=== PATIENT | female | born 1960 | race Caucasian/White ===

== ENCOUNTER 2024-02-01 14:51 | Inpatient (IN) | payer MEDICAID, SELFPAY ==
[2024-02-01] MEDS ORDERED: ONDANSETRON 4 MG/2 ML VIAL ONE (15:08)
[2024-02-01] MEDS ORDERED: MORPHINE 4 MG/ML SYR ONE ×2 (15:08→18:05)
--- NOTE | 2024-02-01 16:57 | RAD REPORT ---
EXAM DESCRIPTION: RAD - Hip Left 2 View - 02/01/2024 4:38 pm CLINICAL HISTORY: PAIN COMPARISON: None available TECHNIQUE: Left hip, AP and frogleg views of the left hip. FINDINGS: Displaced intertrochanteric fracture. femoroacetabular alignment is preserved. No acute or destructive bony process seen. IMPRESSION: Displaced intertrochanteric fracture.
--- NOTE | 2024-02-01 17:21 | ER ---
Nurse's Notes [facility] Name: Britta Rose Age: 64 yrs Sex: Female : 1960 Arrival Date: 02/01/2024 Time: 14:51 Bed 14 Private MD: Diagnosis: Intertrochanteric left hip fracture Presentation: 01/31 14:56 Chief complaint: Patient states: she slipped and fell in her kitchen. reports left hip kc6 pain. Coronavirus screen: At this time, the client does not indicate any symptoms associated with coronavirus-19. Ebola Screen: No symptoms or risks identified at this time. Initial Sepsis Screen: Does the patient meet any 2 criteria? No. Patient's initial sepsis screen is negative. Does the patient have a suspected source of infection? No. Patient's initial sepsis screen is negative. Risk Assessment: Do you want to hurt yourself or someone else? Patient reports no desire to harm self or others. Onset of symptoms was February 01, 2024. 14:56 Method Of Arrival: EMS: [facility] 14:56 Acuity: LAURY 3 kc6 14:59 Care prior to arrival: Medication(s) given: FENTANYL 100MCG IV initiated. 22 GA, in the kc6 right antecubital area. Triage Assessment: 14:57 General: Appears in no apparent distress. uncomfortable, well groomed, well developed, kc6 Behavior is calm, cooperative, appropriate for age. Pain: Complains of pain in left hip. EENT: No signs and/or symptoms were reported regarding the EENT system. Neuro: Level of Consciousness is awake, alert, obeys commands, Oriented to person, place, time, situation, Appropriate for age Reports dizziness. Cardiovascular: Capillary refill < 3 seconds. Respiratory: Airway is patent Trachea midline Respiratory effort is even, unlabored, Respiratory pattern is regular, symmetrical. GI: No signs and/or symptoms were reported involving the gastrointestinal system. : No signs and/or symptoms were reported regarding the genitourinary system. Derm: No signs and/or symptoms reported regarding the dermatologic system. Skin is intact, is healthy with good turgor, Skin is pink, warm \T\ dry. Musculoskeletal: Capillary refill < 3 seconds, Range of motion: limited in left hip. Historical: - Allergies: 14:57 No Known Allergies; kc6 - Home Meds: 14:57 None [Active]; kc6 - PMHx: 14:57 Hypertensive disorder; 6 - PSHx: 14:57 None; kc6 - Immunization history:: Adult Immunizations not up to date. - Infectious Disease History:: Denies. - Social history:: Smoking status: unknown. - Family history:: not pertinent. Screenin:58 [facility] ED Fall Risk Assessment (Adult) History of falling in the last 3 months, city hospital including since admission Yes- single mechanical fall (1 pt) Confusion or Disorientation No (0 pts) Intoxicated or Sedated No (0 pts) Impaired Gait No (0 pts) Mobility Assist Device Used No (0 pt) Altered Elimination No (0 pt) Score/Fall Risk Level 0 - 2 = Low Risk. Abuse screen: Denies threats or abuse. Denies injuries from another. Nutritional screening: No deficits noted. Tuberculosis screening: No symptoms or risk factors identified. Assessment: 14:59 Reassessment: PLEASE SEE TRIAGE. city [facility] 15:59 Reassessment: Patient appears in no apparent distress at this time. No changes from city hospital previously documented assessment. Patient and/or family updated on plan of care and expected duration. Pain level reassessed. Patient is alert, oriented x 3, equal unlabored respirations, skin warm/dry/pink. 16:59 Reassessment: Patient appears in no apparent distress at this time. No changes from kc6 previously documented assessment. Patient and/or family updated on plan of care and expected duration. Pain level reassessed. Patient is alert, oriented x 3, equal unlabored respirations, skin warm/dry/pink. 17:59 Reassessment: Patient appears in no apparent distress at this time. No changes from kc6 previously documented assessment. Patient and/or family updated on plan of care and expected duration. Pain level reassessed. Patient is alert, oriented x 3, equal unlabored respirations, skin warm/dry/pink. 18:30 Reassessment: Patient appears in no apparent distress at this time. No changes from kc6 previously documented assessment. Patient and/or family updated on plan of care and expected duration. Pain level reassessed. Patient is alert, oriented x 3, equal unlabored respirations, skin warm/dry/pink. 19:08 General: Appears in no apparent distress. comfortable, Behavior is calm, cooperative. lg3 Pain: Complains of pain in left hip Pain does not radiate. Pain currently is 8 out of 10 on a pain scale. Neuro: No deficits noted. [place] Agitation-Sedation Scale (RASS): 0 - Alert and Calm Level of Consciousness is awake, alert, obeys commands, Oriented to person, place, time, situation. Cardiovascular: No deficits noted. Denies chest pain, shortness of breath, Capillary refill < 3 seconds Clubbing of nail beds is absent JVD is absent Patient's skin is warm and dry. Respiratory: No deficits noted. Airway is patent Respiratory effort is even, unlabored, Respiratory pattern is regular, symmetrical. GI: No deficits noted. No signs and/or symptoms were reported involving the gastrointestinal system. : Castillo in place to gravity drainage Urine is clear. EENT: No deficits noted. No signs and/or symptoms were reported regarding the EENT system. Derm: No deficits noted. Skin is intact, is healthy with good turgor, Skin is dry, Skin is normal, Skin temperature is warm. Musculoskeletal: Circulation, motion, and sensation intact. Range of motion: limited in left hip. 19:18 General: hospitalist at bedside. lg3 Vital Signs: 14:56 BP 195 / 88; Pulse 72; Resp 16 S; Temp 97.9(O); Pulse Ox 100% on R/A; kc6 15:17 BP 155 / 79; Pulse 69; Resp 16 S; Pulse Ox 99% on R/A; kc6 16:08 BP 156 / 67; Pulse 93; Resp 16 S; Pulse Ox 100% on R/A; kc6 17:09 BP 158 / 74; Resp 19 S; Pulse Ox 99% on R/A; kc6 18:22 BP 128 / 79; Pulse 97; Resp 18 S; Pulse Ox 98% on R/A; kc6 19:08 BP 153 / 82; Pulse 96; Resp 17 S; Pulse Ox 98% on R/A; lg3 ED Course: 14:52 Patient arrived in ED. hb 14:55 Raoul Hanna MD is Attending Physician. rt 14:56 Cheri Pan RN is Primary Nurse. kc6 14:57 Triage completed. kc6 14:57 Arm band placed on. kc6 14:58 Maintain EMS IV. Dressing intact. Good blood return noted. Site clean \T\ dry. Gauge \T\ dejah 6 site: 22G RAC. 14:59 Patient has correct armband on for positive identification. Placed in gown. Bed in low kc6 position. Call light in reach. Side rails up X2. Adult w/ patient. Client placed on continuous cardiac and pulse oximetry monitoring. NIBP monitoring applied. Warm blanket given. Pillow given. 16:39 Hip Left 2 View XRAY In Process Unspecified. EDMS 17:20 Nash Arzola MD is Hospitalizing Provider. rt 17:37 Basic Metabolic Panel Sent. jg11 17:37 CBC with Diff Sent. jg11 17:37 LFT's Sent. jg11 17:37 Magnesium Sent. jg11 17:37 PT-INR Sent. jg11 17:37 Troponin HS Sent. jg11 17:37 Initial lab(s) drawn, by me, sent to lab. Inserted saline lock: 22 gauge in right jg11 wrist, using aseptic technique. Blood collected. 18:13 EKG done, by ED staff, reviewed by Raoul Hanna MD. jg11 18:21 Castillo cath inserted, using sterile technique, 18 Fr., by me, balloon inflated, to kc6 gravity drainage, clamped. returned clear yellow urine. Patient tolerated well. 19:00 Report given to STEPHON Dietrich. kc6 19:08 Report received from STEPHON rodriguez. lg3 20:20 Provided Education on: admission. lg3 20:20 No provider procedures requiring assistance completed. Patient admitted, IV remains in lg3 place. Administered Medications: 15:16 Drug: morphine IVP or IV 4 mg IVP once over 4 mins Route: IVP; Infused Over: 4 mins; kc6 Site: right antecubital; 16:35 Follow up: Response: No adverse reaction; RASS: Alert and Calm (0) kc6 15:16 Drug: Ondansetron IVP 4 mg IVP once; over 2 minutes Route: IVP; Site: right antecubital;kc6 16:35 Follow up: Response: No adverse reaction [facility] 18:21 Drug: morphine IVP or IV 4 mg IVP once over 4 mins Route: IVP; Infused Over: 4 mins; kc6 Site: right wrist; 19:06 Follow up: Response: No adverse reaction; Pain is decreased; RASS: Alert and Calm (0) kc6 19:45 Drug: HYDROmorphone IVP 0.5 mg IVP once Route: IVP; Site: right wrist; lg3 20:45 Follow up: Response: No adverse reaction; Marked relief of symptoms; Pain is decreased lg3 Medication: 19:08 VIS not applicable for this client. lg3 Outcome: 17:20 Decision to Hospitalize by Provider. rt 20:20 Admitted to Med/surg accompanied by tech, via stretcher, room 230, lg3 20:20 Condition: stable 20:20 Instructed on the need for admit, Demonstrated understanding of instructions, 20:45 Patient left the ED. lg3 Signatures: Dispatcher [employer] EDMS Mae Woods RN RN hb Able, Lacie, RN RN lg3 Cheri Pan RN RN kc6 Raoul Hanna MD MD rt Jose C Soni jg11 Corrections: (The following items were deleted from the chart) 19:45 19:08 Pain: Complains of pain in left hip Pain does not radiate. Pain currently is 4 lg3 out of 10 on a pain scale. lg3
--- NOTE | 2024-02-01 17:21 | EDPHYS ---
Physician Documentation [facility] Name: Britta Rose Age: 64 yrs Sex: Female : 1960 Arrival Date: 02/01/2024 Time: 14:51 Bed 14 Private MD: ED Physician Raoul Hanna HPI: 01/31 17:49 This 64 yrs old Female presents to ER via EMS with complaints of Fall Injury, Hip Pain. rt 17:49 Patient presents to the ED with mechanical slip and fall onto her left hip. It is rt externally rotated, foreshortened. Pain is moderate in severity, nonradiating. Denies other injury, other acute complaints.. Historical: - Allergies: 14:57 No Known Allergies; kc6 - Home Meds: 14:57 None [Active]; kc6 - PMHx: 14:57 Hypertensive disorder; kc6 - PSHx: 14:57 None; kc6 - Immunization history:: Adult Immunizations not up to date. - Infectious Disease History:: Denies. - Social history:: Smoking status: unknown. - Family history:: not pertinent. ROS: 17:49 Constitutional: Negative for fever, chills, and weight loss, Cardiovascular: Negative rt for chest pain, palpitations, and edema, Respiratory: Negative for shortness of breath, cough, wheezing, and pleuritic chest pain, Abdomen/GI: Negative for abdominal pain, nausea, vomiting, diarrhea, and constipation, Neuro: Negative for headache, weakness, numbness, tingling, and seizure, Psych: Negative for depression, anxiety, suicide ideation, homicidal ideation, and hallucinations, 17:49 MS/extremity: Positive for injury or acute deformity, pain, Exam: 17:49 Constitutional: This is a well developed, well nourished patient who is awake, alert, rt and in no acute distress. Head/Face: Normocephalic, atraumatic. Chest/axilla: Normal chest wall appearance and motion. Nontender with no deformity. No lesions are appreciated. Cardiovascular: Regular rate and rhythm with a normal S1 and S2. No gallops, murmurs, or rubs. Normal PMI, no JVD. No pulse deficits. Respiratory: Lungs have equal breath sounds bilaterally, clear to auscultation and percussion. No rales, rhonchi or wheezes noted. No increased work of breathing, no retractions or nasal flaring. Abdomen/GI: Soft, non-tender, with normal bowel sounds. No distension or tympany. No guarding or rebound. No evidence of tenderness throughout. Skin: Warm, dry with normal turgor. Normal color with no rashes, no lesions, and no evidence of cellulitis. Neuro: Awake and alert, GCS 15, oriented to person, place, time, and situation. Cranial nerves II-XII grossly intact. Motor strength 5/5 in all extremities. Sensory grossly intact. Cerebellar exam normal. Normal gait. 17:49 Musculoskeletal/extremity: Externally rotated and foreshortened left leg, pulses, motor, sensation intact, tenderness overlying hip, no other focal areas of tenderness.. 18:12 ECG was reviewed by the Attending Physician. rt Vital Signs: 14:56 BP 195 / 88; Pulse 72; Resp 16 S; Temp 97.9(O); Pulse Ox 100% on R/A; kc6 15:17 BP 155 / 79; Pulse 69; Resp 16 S; Pulse Ox 99% on R/A; kc6 16:08 BP 156 / 67; Pulse 93; Resp 16 S; Pulse Ox 100% on R/A; kc6 17:09 BP 158 / 74; Resp 19 S; Pulse Ox 99% on R/A; kc6 18:22 BP 128 / 79; Pulse 97; Resp 18 S; Pulse Ox 98% on R/A; kc6 19:08 BP 153 / 82; Pulse 96; Resp 17 S; Pulse Ox 98% on R/A; lg3 MDM: 14:57 Patient medically screened. rt 17:49 Differential diagnosis: Hip fracture. Data reviewed: vital signs, nurses notes, rt radiologic studies. Consideration of Admission/Observation Patient was admitted/placed on observation. Management of patient was discussed with the following: Laundry Helper: Discussed with orthopedics on-call, recommends admission to hospital service. I considered the following discharge prescriptions or medication management in the emergency department Medications were administered in the Emergency Department. See MAR. Independent interpretation of the following test(s) in the Emergency Department X-Ray: My interpretation is Hip fracture seen on interpretation of x-ray images. Counseling: I had a detailed discussion with the patient and/or guardian regarding the historical points, exam findings, and any diagnostic results supporting the discharge/admit diagnosis, radiology results, the need for further work-up and treatment in the hospital. Response to treatment: the patient's symptoms have mildly improved after treatment. 01/31 17:18 Order name: Basic Metabolic Panel; Complete Time: 18:34 rt 01/31 17:18 Order name: CBC with Diff; Complete Time: 18:34 rt 01/31 17:18 Order name: LFT's; Complete Time: 18:34 rt 01/31 17:18 Order name: Magnesium; Complete Time: 18:34 rt 01/31 17:18 Order name: PT-INR; Complete Time: 17:57 rt 01/31 17:18 Order name: Troponin HS; Complete Time: 18:34 rt 01/31 17:41 Order name: CBC Smear Scan; Complete Time: 18:34 EDMS 01/31 19:08 Order name: CBC with Automated Diff EDMS 01/31 19:08 Order name: CBC with Automated Diff EDMS 01/31 19:08 Order name: Comprehensive Metabolic Panel EDMS 01/31 19:08 Order name: Comprehensive Metabolic Panel EDMS 01/31 19:08 Order name: Magnesium EDMS 01/31 19:08 Order name: Magnesium EDMS 01/31 19:08 Order name: Phosphorus EDMS 01/31 19:08 Order name: Phosphorus EDMS 01/31 19:08 Order name: Protime (+INR) EDMS 01/31 19:08 Order name: Protime (+INR) EDMS 01/31 19:08 Order name: PTT, Activated Partial Thromb EDMS 01/31 19:08 Order name: PTT, Activated Partial Thromb EDMS 01/31 15:07 Order name: Hip Left 2 View XRAY; Complete Time: 16:59 rt 01/31 17:18 Order name: EKG; Complete Time: 17:18 rt 01/31 19:08 Order name: CONS Physician Consult EDMS 01/31 17:18 Order name: Cardiac monitoring; Complete Time: 17:37 rt 01/31 17:18 Order name: EKG - Nurse/Tech; Complete Time: 18:13 rt 01/31 17:18 Order name: IV Saline Lock; Complete Time: 17:37 rt 01/31 17:18 Order name: Labs collected and sent; Complete Time: 17:37 rt 01/31 17:18 Order name: O2 Per Protocol; Complete Time: 17:37 rt 01/31 17:18 Order name: O2 Sat Monitoring; Complete Time: 17:37 rt EC:12 Rate is 113 beats/min. Rhythm is regular, Normal Sinus Rhythm with No ectopy. QRS [place] rt is Normal. NC interval is normal. QRS interval is normal. QT interval is normal. No Q waves. Clinical impression: NSR w/ Non-specific ST/T Changes. Administered Medications: 15:16 Drug: morphine IVP or IV 4 mg IVP once over 4 mins Route: IVP; Infused Over: 4 mins; kc6 Site: right antecubital; 16:35 Follow up: Response: No adverse reaction; RASS: Alert and Calm (0) 6 15:16 Drug: Ondansetron IVP 4 mg IVP once; over 2 minutes Route: IVP; Site: right antecubital;kc6 16:35 Follow up: Response: No adverse reaction 6 18:21 Drug: morphine IVP or IV 4 mg IVP once over 4 mins Route: IVP; Infused Over: 4 mins; kc6 Site: right wrist; 19:06 Follow up: Response: No adverse reaction; Pain is decreased; RASS: Alert and Calm (0) 6 19:45 Drug: HYDROmorphone IVP 0.5 mg IVP once Route: IVP; Site: right wrist; lg3 20:45 Follow up: Response: No adverse reaction; Marked relief of symptoms; Pain is decreased lg3 Disposition Summary: 02/01/24 17:20 Hospitalization Ordered Notes: Hospitalization Status: Inpatient Admission rt Provider: Nash Arzola rt Location: Telemetry/[facility] (Inpatient) rt Condition: Stable rt Problem: new rt Symptoms: are unchanged rt Bed/Room Type: Standard rt Room Assignment: 230(02/01/24 19:29) vc1 Diagnosis - Intertrochanteric left hip fracture rt Forms: - Medication Reconciliation Form rt - SBAR form rt - Leadership Thank You Letter rt Signatures: Dispatcher [employer] Monserrat Sanchez Lacie RN RN lg3 Zahraa Domínguez RN RN vc1 Cheri Pan RN RN kc6 Raoul Hanna MD MD rt Corrections: (The following items were deleted from the chart) 15:07 15:07 Hip Left 2 View+RAD.RAD.BRZ ordered. EDMS EDMS 18:31 17:20 rt eb 18:34 18:31 216 eb eb 19:29 18:34 eb vc1
[2024-02-01 17:38] LABS: Absolute Basophils 0.1 K/uL (0-0.5); Absolute Lymphocytes (CBC) 1.3 K/uL (0.7-4.9); Absolute Monocytes 0.8 K/uL (0.1-1.3); Absolute Neutrophil 21.5 K/uL (1.8-8.0); Basophils % 0.2 % (0-1.3); Hematocrit 37.1 % (36.0-45.0); Hemoglobin 12.6 g/dL (12.0-15.0); Lymphocytes % 5.4 % (15.3-44.8); MCV 94.1 fL (80-100); MPV 8.4 fL (7.6-11.3); Monocytes % 3.4 % (3.3-12.3); Platelets 423 thou/uL (152-406); RBC Red Blood Cell Count 3.94 M/uL (3.86-4.86); Red Cell Distribution Width 12.8 % (12.1-15.2)
[2024-02-01 17:42] LABS: PT Prothrombin Time 11.9 SECONDS (9.5-12.5); Protime INR 1.08
[2024-02-01 17:57] LABS: ALT/SGPT 51 U/L (13-56); AST/SGOT 20 U/L (15-37); Albumin 3.7 g/dL (3.4-5.0); Alkaline Phosphatase 93 U/L (45-117); Anion Gap 11.1 mEq/L (5.0-15.0); BUN Blood Urea Nitrogen 14 mg/dL (7-18); Bicarbonate 25 mEq/L (21-32); Bilirubin Total 0.4 mg/dL (0.2-1.0); Globulin 3.6 g/dL (2.3-3.5); Glomerular Filtration Rate 59 ml/min (=/>90); Glucose Level 211 mg/dL (74-106); Magnesium 1.6 mg/dL (1.6-2.4); Potassium 3.1 mEq/L (3.5-5.1); Protein, Total 7.3 g/dL (6.4-8.2); Sodium Level 135 mEq/L (136-145); Troponin High Sensitivity 5.2 pg/mL (<58.9)
[2024-02-01 18:04] LABS: Blood Morphology Comment NOT SEEN (NOT SEEN); Platelet Estimate INCR; White Blood Cell Scan OK (OK)
[2024-02-01 18:33] LABS: Bilirubin Direct < 0.2 mg/dL (0-0.2); Bilirubin Indirect, Calculated 0.2 mg/dL (0.2-0.8)
[2024-02-01] MEDS ORDERED: ACETAMINOPHEN 500 MG TAB PO PRN (19:01)
--- NOTE | 2024-02-01 19:06 | P.HP ---
Certification for Inpatient Patient admitted to: Inpatient With expected LOS: >2 Midnights Patient will require the following post-hospital care: Rehabilitation Practitioner: I am a practitioner with admitting privileges, knowledge of patient current condition, hospital course, and medical plan of care. Services: Services provided to patient in accordance with Admission requirements found in Title 42 Section 412.3 of the Code of Federal Regulations Patient History Date of Service: 02/01/24 Reason for admission: Left hip fracture History of Present Illness: Patient is a 64-year-old female came to the hospital after a fall. Patient was in her kitchen and she thinks her socks got caught on a screw on on the floor. She bent over to get her sock out of the screw when she fell backwards and landed on her left buttocks. Patient was unable to stand. EMS was called and patient was brought into the emergency room. Patient denies any medical probl ems. She has been to a physician in many years. She does not get her preventative screenings either. In the emergency room, patient had x-rays of her hip which revealed a left intertrochanteric fracture. Dr. Diehl was notified from the emergency room. Patient is to be n.p.o. for surgical intervention in the morning. Patient with no medical problems. No cardiac disease. No high blood pressure or diabetes. Patient denies any chest pain or shortness of breath on ambulation. She does not get short of breath on walking long distance. Patient is low risk for any cardiopulmonary complications. Benefits of surgery outweigh the risks. Will recommend proceeding with surgery and patient is agreeable. Allergies No Known Allergies Allergy (Unverified 02/01/24 21:29) Home Medications: NK [No Home Meds] 02/01/24 - Past Medical/Surgical History Past Medical History: Patient denies medical history Past Surgical History: Patient denies surgical history - Family History Father Family History: Reviewed- Non-Contributory - Social History Smoking Status: Former smoker Alcohol use: No CD- Drugs: No Review of Systems 10-point ROS is otherwise unremarkable Physical Examination - Vital Signs Temperature: 98 F Blood Pressure: 140/80 Pulse: 80 Respirations: 18 Pulse Ox (%): 95 - Physical Exam General: Alert, In no apparent distress, Oriented x3 HEENT: Atraumatic, PERRLA, Mucous membr. moist/pink, EOMI, Sclerae nonicteric Neck: Supple, 2+ carotid pulse no bruit, No LAD, Without JVD or thyroid abnormality Respiratory: Clear to auscultation bilaterally, Normal air movement Cardiovascular: Regular rate/rhythm, Normal S1 S2, No murmurs Gastrointestinal: Normal bowel sounds, Soft and benign, Non-distended, No tenderness Musculoskeletal: No clubbing, No swelling, Tenderness (left hip fracture) Integumentary: No rashes Neurological: Normal gait, Normal speech, Normal strength at 5/5 x4 extr, Normal tone, Sensation intact, Cranial nerves 3-12 intact, Normal affect Lymphatics: No axilla or inguinal lymphadenopathy - Studies Laboratory Data (last 24 hrs) 02/01/24 02/01/24 02/01/24 17:28 17:28 17:28 WBC 23.60 H Hgb 12.6 Hct 37.1 Plt Count 423 H PT 11.9 INR 1.08 Sodium 135 L Potassium 3.1 L BUN 14 Creatinine 1.07 H Glucose 211 H Magnesium 1.6 Total Bilirubin 0.4 AST 20 ALT 51 Alkaline Phosphatase 93 Assessment & Plan - Problems (Diagnosis) (1) Fracture of left hip Current Visit: Yes Status: Acute (2) Leukocytosis Current Visit: Yes Status: Acute - Plan Plan: 1. Orthopedic consultation 2. N.p.o. after midnight 3. Monitor white blood cell count 4. Prophylactic antibiotics on-call to the OR 5. DVT prophylaxis 6. Physical therapy eval after surgery with possible inpatient rehabilitation to proceed after surgery depending on weightbearing status 7. Patient will need referral for PCP follow-up 8. GI DVT prophylaxis Discharge Plan: Other (Inpatient rehab) Plan to discharge in: Greater than 2 days - Advance Directives Does patient have a Living Will: No Does patient have a Durable POA for Healthcare: No - Code Status/Comfort Care Code Status Assessed: Yes Code Status: Full Code Critical Care: No Time Spent Managing PTS Care (In Minutes): 45
[2024-02-01] MEDS ORDERED: HYDROMORPHONE HCL 0.5 MG/0.5 ML INJ ONE (19:43)
[2024-02-01] MEDS: NA CHLORIDE 0.9% 1,000 ML IV SCH (21:29)
[2024-02-01] MEDS: HYDROMORPHONE HCL 0.5 MG/0.5 ML INJ IV PRN (21:30)
[2024-02-01] MEDS: CEFAZOLIN 1 GM in NA CHLORIDE 0.9% 50 ML IVPB ONE (21:30)
[2024-02-01] MEDS: ENOXAPARIN 40 MG/0.4 ML SQ SCH (22:00)
[2024-02-01 23:15] VITALS: BMI 20.1
[2024-02-02 07:39] LABS: Absolute Lymphocytes (CBC) 1.9 K/uL (0.7-4.9); Absolute Monocytes 0.8 K/uL (0.1-1.3); Absolute Neutrophil 11.6 K/uL (1.8-8.0); Basophils % 0.1 % (0-1.3); Hematocrit 33.3 % (36.0-45.0); Hemoglobin 11.4 g/dL (12.0-15.0); Lymphocytes % 13.5 % (15.3-44.8); MCH 32.2 pg (27.0-35.0); MCHC 34.2 g/dL (32.0-36.0); MCV 94.1 fL (80-100); MPV 8.5 fL (7.6-11.3); Monocytes % 5.8 % (3.3-12.3); Neutrophils % 80.6 % (41.7-73.7); Nucleated Red Blood Cells % 0.1 % (0-0); Platelets 401 thou/uL (152-406); RBC Red Blood Cell Count 3.54 M/uL (3.86-4.86); Red Cell Distribution Width 12.8 % (12.1-15.2)
[2024-02-02 07:56] LABS: Albumin 3.3 g/dL (3.4-5.0); Anion Gap 9.4 mEq/L (5.0-15.0); Bilirubin Total 0.6 mg/dL (0.2-1.0); Globulin 3.4 g/dL (2.3-3.5); Magnesium 2.1 mg/dL (1.6-2.4); Phosphorus 2.8 mg/dL (2.5-4.9); Potassium 3.4 mEq/L (3.5-5.1); Protein, Total 6.7 g/dL (6.4-8.2)
[2024-02-02 08:00] LABS: PT Prothrombin Time 12.6 SECONDS (9.5-12.5); PTT, Activated Partial Thromb 27.7 SECONDS (24.3-36.9); Protime INR 1.15
--- NOTE | 2024-02-02 08:20 | RAD REPORT ---
EXAM DESCRIPTION: RAD - Chest Single View - 02/02/2024 8:15 am CLINICAL HISTORY: preop Chest pain. COMPARISON: No comparisons FINDINGS: Portable technique limits examination quality. The lungs are grossly clear. The heart is normal in size. No displaced fractures. IMPRESSION: No acute intrathoracic process suspected.
[2024-02-02] MEDS: KCL 20 MEQ/100 mL IVPB 20 MEQ/100 ML BAG IV SCH (09:02)
--- NOTE | 2024-02-02 09:21 | P.PN ---
Subjective Date of Service: 02/02/24 Chief Complaint: Left hip fracture Subjective: No new changes (states she is awaiting surgery today) <Wendy Perezlen - Last Filed: 02/02/24 09:21> Date of Service: 02/02/24 <Yg Thompson - Last Filed: 02/02/24 12:47> Review of Systems 10-point ROS is otherwise unremarkable General: As per HPI Musculoskeletal: As per HPI <Wendy Perez Faisal - Last Filed: 02/02/24 09:21> Physical Examination - Vital Signs Temperature: 98.8 F Blood Pressure: 194/97 Pulse: 85 Respirations: 18 Pulse Ox (%): 98 - Physical Exam General: Alert, In no apparent distress, Oriented x3 HEENT: Atraumatic, Normocephalic Neck: 2+ carotid pulse no bruit Respiratory: Normal air movement Cardiovascular: Normal pulses (tachycardic) Capillary refill: <2 Seconds Gastrointestinal: Soft and benign Musculoskeletal: No clubbing, Other (mild left hip edema, tenderness to lateral left hip, peripheral pulses normal) Integumentary: No rashes Neurological: Normal speech Lymphatics: No axilla or inguinal lymphadenopathy Urinary: Castillo catheter External genitalia: Deferred Rectal: Deferred - Studies Laboratory Data (last 24 hrs) 02/01/24 02/01/24 02/01/24 17:28 17:28 17:28 WBC 23.60 H Hgb 12.6 Hct 37.1 Plt Count 423 H PT 11.9 INR 1.08 Sodium 135 L Potassium 3.1 L BUN 14 Creatinine 1.07 H Glucose 211 H Magnesium 1.6 Total Bilirubin 0.4 AST 20 ALT 51 Alkaline Phosphatase 93 <Wendy Perez Faisal - Last Filed: 02/02/24 09:21> - Studies Laboratory Data (last 24 hrs) 02/01/24 02/01/24 02/01/24 17:28 17:28 17:28 WBC 23.60 H Hgb 12.6 Hct 37.1 Plt Count 423 H PT 11.9 INR 1.08 Sodium 135 L Potassium 3.1 L BUN 14 Creatinine 1.07 H Glucose 211 H Magnesium 1.6 Total Bilirubin 0.4 AST 20 ALT 51 Alkaline Phosphatase 93 <Yg Thompson - Last Filed: 02/02/24 12:47> Assessment And Plan - Plan (1) Fracture of left hip Current Visit: Yes Status: Acute (2) Leukocytosis Current Visit: Yes Status: Acute - Plan Plan: 1. Orthopedic consultation - Dr. Diehl following 2. N.p.o. after midnight 3. Monitor white blood cell count 4. Prophylactic antibiotics on-call to the OR 5. DVT prophylaxis 6. Physical therapy eval after surgery with possible inpatient rehabilitation to proceed after surgery depending on weightbearing status 7. Patient will need referral for PCP follow-up 8. GI DVT prophylaxis Discharge Plan: Other (Inpatient rehab) Plan to discharge in: Greater than 2 days - Advance Directives Does patient have a Living Will: No Does patient have a Durable POA for Healthcare: No <Wendy Perez - Last Filed: 02/02/24 09:21> - Plan Pt seen and examined. I agree with the note by the FIRST ASSISTANT MANAGER. Dr. Diehl will take her to the OR tomorrow. Urinalysis is pending. Continue prn pain med. <Yg Thompson - Last Filed: 02/02/24 12:47>
[2024-02-02] MEDS: LABETALOL 20 MG/4ML SYRINGE IV ONE (10:25)
[2024-02-02] MEDS: ONDANSETRON 4 MG/2 ML VIAL IV PRN (10:34)
--- NOTE | 2024-02-02 12:19 | EKG ---
Test Date: 2024-02-02 Test Time: 07:58:50 [employer] Manager: CARMELITA MEASUREMENT RESULTS: Intervals: Rate: 79 IA: 138 QRSD: 80 QT: 380 QTc: 435 Wheeler: P: 59 IA: 138 QRS: 68 T: 68 INTERPRETIVE STATEMENTS: Normal sinus rhythm ST abnormality, possible digitalis effect Abnormal ECG Compared to ECG 02/01/2024 18:10:27 Sinus tachycardia no longer present Atrial abnormality no longer present ST (T wave) deviation still present Electronically Signed On 02-02-24 12:18:59 CDT by Asael Vazquez
--- NOTE | 2024-02-02 12:21 | EKG ---
Test Date: 2024-02-01 Test Time: 18:10:27 Professor Of Mechanical Engineering: RAFIA MEASUREMENT RESULTS: Intervals: Rate: 113 SD: 140 QRSD: 66 QT: 344 QTc: 471 [place]: P: 72 SD: 140 QRS: 77 T: 66 INTERPRETIVE STATEMENTS: Sinus tachycardia Right atrial enlargement Nonspecific ST abnormality Abnormal ECG No previous ECG available for comparison Electronically Signed On 02-02-24 12:19:50 CDT by Asael Vazquez
--- NOTE | 2024-02-02 13:41 | CON ---
Date of Consultation: 02/02/2024 History Of Present Illness: This is my first time seeing this patient to my knowledge. She says she does not normally see doctors. Unfortunately yesterday morning, she says she was removing something from dryer, had socks on and tripped. When she did, she landed directly on her left hip. She had i mmediate pain, was unable to get up and ambulate, and she was taken to the emergency room where x-ray s demonstrated a complex 4-part intertrochanteric fracture which was highly displaced. She was then admitted to the hospital under the care of the hospitalist and I am asked to see her. Physical Examination: She has no pain with palpation of any long bone or joint with the exception of her left hip, which is very painful to movement or manipulation. Laboratory Data And Imaging: Review of x-rays do demonstrate a complex comminuted 4-part intertrocha nteric fracture on the left. Review of laboratories reveal a relatively high white count as well as low potassium, high glucose and decreased sodium, which could be pseudohyponatremia from the glucose, which was over 200. None of these abnormalities have an easy explanation for the etiology as she is only 64 and says she has no medical problems. Assessment: A 64-year-old female, now with a complex comminuted intertrochanteric fracture on the le ft. Plan: At this time, we will see her labs due today, but I think it would be better for Internal Medi cine or Hospitalist to see her over the course of today to see if any further abnormalities can be di scerned prior to planned operative intervention tomorrow. Risks, benefits, and alternatives of this procedure have been discussed with her. She states she understands things as presented. We will mos t likely proceed tomorrow. All of her questions were otherwise answered. /KALEY Voice ID: [id number] Report ID: [id number]
[2024-02-02] MEDS ORDERED: ENOXAPARIN 40 MG/0.4 ML SQ SCH (17:00)
[2024-02-02 19:21] LABS: Specific Gravity 1.021 (1.005-1.030); Sqamous Epithelial None Seen /HPF (None Seen); Urine Bacteria None Seen /HPF (<20); Urine Bilirubin NEGATIVE (Negative); Urine Blood 2+ (Negative); Urine Clarity Clear (Clear); Urine Color Light-Yellow (Yellow); Urine Culture Reflex Order NOT NEEDED; Urine Glucose 1+ (Negative); Urine Ketones NEGATIVE (Negative); Urine Microscopic Reflex YN ORDER UMIC; Urine Mucus 1+ /HPF (None Seen); Urine Nitrite NEGATIVE (Negative); Urine Protein NEGATIVE (Negative); Urine Urobilinogen Normal (Normal); Urine WBC <5 /HPF (<5); Urine pH 6.5 (5.0-7.0)
[2024-02-03 04:44] LABS: Anion Gap 6.9 mEq/L (5.0-15.0); Potassium 3.9 mEq/L (3.5-5.1)
[2024-02-03] MEDS ORDERED: FENTANYL CITR 100 MCG/2 ML ONE (07:24)
[2024-02-03] MEDS: TRANEXAMIC ACID 1,000 MG/10 ML VIAL IV ONE (07:24)
[2024-02-03] MEDS ORDERED: LIDOCAINE 1% MPF 5 ML VIAL ONE (07:24)
[2024-02-03] MEDS ORDERED: MIDAZOLAM HCL 2 MG/2 ML INJ ONE (07:24)
[2024-02-03] MEDS ORDERED: propofoL 200 MG/20 ML VIAL IV ONE (07:24)
[2024-02-03] MEDS: Ringers Lactate 1,000 ML IV ONE (07:47)
[2024-02-03] MEDS: KCL 20 MEQ/100 mL IVPB 20 MEQ/100 ML BAG IV SCH (08:00)
[2024-02-03] MEDS ORDERED: KETAMINE HCL IN 0.9 % NACL 50 MG/5 ML SYRINGE IV ONE (08:26)
[2024-02-03] MEDS ORDERED: dexAMETHasone 10 MG/ML VIAL ONE (08:26)
[2024-02-03] MEDS ORDERED: KETOROLAC 30 MG/ML INJ ONE (08:26)
[2024-02-03] MEDS: CEFAZOLIN SODIUM 1 GM/VIAL ONE (08:45)
[2024-02-03] MEDS ORDERED: ONDANSETRON 4 MG/2 ML VIAL ONE (08:49)
--- NOTE | 2024-02-03 09:33 | P.BOP ---
Preoperative diagnosis: left comminuted IT fracture Postoperative diagnosis: same Primary procedure: left hip RUTH fixation Estimated blood loss: 100 ccs Anesthesia: General Complications: None Transferred to: Recovery Room Condition: Good
[2024-02-03] MEDS: MEPERIDINE HCL 25 MG/ML SYR ONE (10:12)
--- NOTE | 2024-02-03 10:47 | RAD REPORT ---
EXAM DESCRIPTION: RAD - Hip Left 2 View - 02/03/2024 10:28 am CLINICAL HISTORY: Left hip surgery FINDINGS: Fifty-nine intraoperative fluoroscopic spot images obtained. Fluoroscopy time a 1.6 minute s Compression screw and intramedullary jenny placed into the left femur. Surgery performed by Dr. Diehl
[2024-02-03] MEDS: POTASSIUM CL SA 10 MEQ TAB PO ONE (10:53)
--- NOTE | 2024-02-03 15:07 | P.PN ---
Subjective Date of Service: 02/03/24 Chief Complaint: Left hip fracture Pt is resting comfortably in bed. Ortho took her to the OR for hip repair. Pt is doing well post-op. No complaints. Review of Systems General: Unremarkable Eyes: Unremarkable ENT: Unremarkable Respiratory: Unremarkable Cardiovascular: Unremarkable Gastrointestinal: Unremarkable Genitourinary: Unremarkable Musculoskeletal: Other (left hip pain) Integumentary: Unremarkable Neurological: Unremarkable Lymphatics: Unremarkable Physical Examination - Vital Signs Temperature: 99.0 F Blood Pressure: 149/72 Pulse: 84 Respirations: 16 Pulse Ox (%): 98 - Physical Exam General: Alert, In no apparent distress, Oriented x3 HEENT: Atraumatic, Normocephalic, PERRLA Neck: Supple, 2+ carotid pulse no bruit, JVD not distended Respiratory: Clear to auscultation bilaterally, Normal air movement Cardiovascular: No edema, Normal pulses, Regular rate/rhythm, Normal S1 S2 Capillary refill: <2 Seconds Gastrointestinal: Normal bowel sounds, Soft and benign, Non-distended Musculoskeletal: No clubbing, No swelling Integumentary: No rashes, No breakdown Neurological: Normal speech, Normal strength at 5/5 x4 extr, Normal tone Lymphatics: No axilla or inguinal lymphadenopathy Assessment And Plan - Plan Left hip pain: Due to fracture. Ortho took pt to the OR today. Will continue prn pain med, ancef, and PT. Dr. Diehl is following Hyponatremia: N ais 133. Will continue IVF and monitor Na. DVT ppx: Lovenox. GI ppx: protonix Code: full
[2024-02-03] MEDS: CEFAZOLIN 1 GM in NA CHLORIDE 0.9% 50 ML IVPB SCH (17:36)
--- NOTE | 2024-02-03 21:00 | OP ---
Date of Procedure: 02/03/2024 Surgeon: Dain Diehl MD Preoperative Diagnosis: Left hip comminuted displaced intertrochanteric femur fracture. Postoperative Diagnosis: Left hip comminuted displaced intertrochanteric femur fracture. Procedures: Left hip closed reduction with intramedullary jenny fixation using the [employer] nail system. Estimated Blood Loss: 100 cc. Complications: There were no complications. Specimen: There are no pathology specimen sent. Indications For Operation: Ms. Rose is a 64-year-old female who unfortunately fell injuring her left lower extremity. She has been seen and evaluated by Medicine and risks, benefits, and alternatives to this procedure as well as her diagnosis had been extensively discussed with both her and her famil y. They stated they understand things as presented and wished to proceed. Description Of Procedure: Patient was taken to the operating room, placed in supine position. Gener al anesthesia was easily obtained by the Anesthesia staff. Following this, she was then transferred to the operative table and her lower extremity was then appropriately positioned on the fracture tabl e. A combination of traction and internal rotation were used to obtain an excellent reduction despit e the comminuted displaced nature of the fracture. After this, the left lower extremity was then pre pped and draped in the usual sterile fashion for the procedure and the position of the greater trocha nter was marked out using the C-arm. After this, a vertical incision was made above the greater troc hanter, which allowed for placement of the starting awl. The entry portal was placed as medial as it was feasible to allow for avoidance of displacing the femur laterally. During the procedure, it darin eared to be a good starting point and the guide was placed without significant difficulty. After thi s, the blocker hand was then used to ream down to the greater trochanter and a size 9 x 130 nail was t hen placed over the guide jenny. The guide jenny was then removed and cephalomedullary screw was placed in standard fashion. It was made a little bit shorter than normal to allow for some compression of t he fracture itself. After this, an anti-rotational screw was placed in standard fashion followed by the distal interlock. The guide was removed and the fascia was closed using heavy Vicryl sutures fol lowed by closure of skin using 2-0 Vicryl sutures and meme. The patient was then placed in Aquace l dressing, awakened, and taken to recovery room in good condition. There were no complications. SE/MODL Voice ID: [id number] Report ID: [id number]
[2024-02-04 04:01] LABS: Anion Gap 5.8 mEq/L (5.0-15.0); Potassium 3.8 mEq/L (3.5-5.1)
[2024-02-04] MEDS: POTASSIUM CL SA 10 MEQ TAB PO ONE (08:00)
[2024-02-04 08:24] VITALS: O2SAT 96
--- NOTE | 2024-02-04 12:28 | P.PN ---
Subjective Date of Service: 02/04/24 Chief Complaint: Left hip fracture Pt is resting comfortably in bed. Ortho took her to the OR on for hip repair. Pt is doing well post-op. No complaints. Review of Systems General: Unremarkable Eyes: Unremarkable ENT: Unremarkable Respiratory: Unremarkable Cardiovascular: Unremarkable Gastrointestinal: Unremarkable Genitourinary: Unremarkable Musculoskeletal: Leg Pain Integumentary: Unremarkable Neurological: Unremarkable Lymphatics: Unremarkable Physical Examination - Vital Signs Temperature: 98.4 F Blood Pressure: 154/78 Pulse: 91 Respirations: 16 Pulse Ox (%): 96 - Physical Exam General: Alert, In no apparent distress, Oriented x3 HEENT: Atraumatic, Normocephalic, PERRLA Neck: Supple, 2+ carotid pulse no bruit Respiratory: Clear to auscultation bilaterally, Normal air movement Cardiovascular: No edema, Normal pulses, Regular rate/rhythm, Normal S1 S2 Capillary refill: <2 Seconds Gastrointestinal: Normal bowel sounds, Soft and benign, Non-distended Musculoskeletal: No clubbing, No swelling Integumentary: No rashes, No breakdown Neurological: Normal speech, Normal strength at 5/5 x4 extr, Normal tone, Sensation intact Lymphatics: No axilla or inguinal lymphadenopathy Assessment And Plan - Plan Left hip pain: Due to fracture. Ortho took pt to the OR on 02/03/24. Will continue prn pain med, ancef, and PT. Dr. Diehl is following Hyponatremia: Na is 138 <- 133. Will continue IVF and monitor Na. DVT ppx: Lovenox. GI ppx: protonix Code: full Dispo: Pt reports that she needs a wheelchair in order to get around.
--- NOTE | 2024-02-04 15:22 | P.DS ---
Admission Date: 02/01/24 Discharge Date: 02/04/24 Disposition: ROUTINE DISCHARGE Discharge Condition: GOOD Reason for Admission: Left hip fracture Brief History of Present Illness: Patient is a 64-year-old female came to the hospital after a fall. Patient was in her kitchen and she thinks her socks got caught on a screw on on the floor. She bent over to get her sock out of the screw when she fell backwards and landed on her left buttocks. Patient was unable to stand. EMS was called and patient was brought into the emergency room. Patient denies any medical problems. She has been to a physician in many years. She does not get her preventative screenings either. In the emergency room, patient had x-rays of her hip which revealed a left intertrochanteric fracture. Dr. Diehl was notified from the emergency room. Patient is to be n.p.o. for surgical intervention in the morning. Patient with no medical problems. No cardiac disease. No high blood pressure or diabetes. Patient denies any chest pain or shortness of breath on ambulation. She does not get short of breath on walking long distance. Patient is low risk for any cardiopulmonary complications. Benefits of surgery outweigh the risks. Will recommend proceeding with surgery and patient is agreeable. Hospital Course: Pt is a 64 yo female who presented with left hip pain s/p fall in her kitchen at home. On admission, x-ray showed left intertrochanteric fracture. Dr. Diehl took her to the OR for hip repair. Pt did well post-op. She ambulated with a rolling walker and the Physical therapist recommended a wheelchair to get around at home. Pt ordered a wheel chair on [employer]. She will use her brother's wheelchair until [employer] delivers her wheelchair. We discharged pt with aspirin for DVT prophylaxis. She was also give [place] for pain control. Pt was in NAD prior to discharge. Vital Signs/Physical Exam: Temp Pulse Resp BP Pulse Ox 98.4 F 91 H 16 154/78 H 96 02/04/24 12:27 02/04/24 12:27 02/04/24 12:27 02/04/24 12:27 02/04/24 12:27 Laboratory Data at Discharge: WBC 14.40 thou/uL (4.3-10.9) H 02/02/24 06:53 Hgb 11.4 g/dL (12.0-15.0) L D 02/02/24 06:53 Hct 33.3 % (36.0-45.0) L 02/02/24 06:53 Plt Count 401 thou/uL (152-406) 02/02/24 06:53 PT 12.6 SECONDS (9.5-12.5) H 02/02/24 06:53 INR 1.15 02/02/24 06:53 APTT 27.7 SECONDS (24.3-36.9) 02/02/24 06:53 Sodium 138 mEq/L (136-145) D 02/04/24 03:05 Potassium 3.8 mEq/L (3.5-5.1) 02/04/24 03:05 BUN 15 mg/dL (7-18) 02/04/24 03:05 Creatinine 0.61 mg/dL (0.55-1.02) 02/04/24 03:05 Glucose 143 mg/dL (74-106) H 02/04/24 03:05 Phosphorus 2.8 mg/dL (2.5-4.9) 02/02/24 06:53 Magnesium 2.1 mg/dL (1.6-2.4) 02/02/24 06:53 Total Bilirubin 0.6 mg/dL (0.2-1.0) 02/02/24 06:53 AST 13 U/L (15-37) L 02/02/24 06:53 ALT 43 U/L (13-56) 02/02/24 06:53 Alkaline Phosphatase 86 U/L (45-117) 02/02/24 06:53 Home Medications: Aspirin [Aspirin EC 325 MG] 325 mg PO BID 30 Days #60 tab 02/04/24 Hydrocodone 5/APAP 325 [[place] 5/325] 1 tab PO Q6H PRN 10 Days #40 tab 02/04/24 New Medications: Aspirin [Aspirin EC 325 MG] 325 mg PO BID 30 Days #60 tab Hydrocodone 5/APAP 325 [[place] 5/325] 1 tab PO Q6H PRN 10 Days #40 tab PRN Reason: Pain Physician Discharge Instructions: Continue ad ashley activity. Take aspirin 325mg po BID for 1 month and prn norco. FOllow up with PCP and Ortho within 2 weeks. Diet: AHA Activity: Ad ashley Followup: Dain Diehl MD [ACTIVE - CAN ADMIT] - NONE,NONE [Primary Care Provider] -
[2024-02-04 16:40] VITALS: BP 113/59; TEMP 98.9
== END 2024-02-04 17:15 | disposition home or self-care (01) | DRG 481 ==
LOC: ER 14:51 → ERHOLD 19:01 → 2ND 20:30
PROVIDERS: ADMIT Hospitalist; ATTEND Hospitalist
PROC: 0QS736Z Reposition Left Upper Femur with Intramedullary Internal Fixation Device, Percutaneous Approach (ICD-10-PCS; principal; 2024-02-03 08:00)
PROC: 0T9B70Z Drainage of Bladder with Drainage Device, Via Natural or Artificial Opening (ICD-10-PCS; 2024-02-04)
DX: S72.142A Displaced intertrochanteric fracture of left femur, initial encounter for closed fracture (principal); E87.1 Hypo-osmolality and hyponatremia; I10 Essential (primary) hypertension; D72.829 Elevated white blood cell count, unspecified; Z79.82 Long term (current) use of aspirin; Z87.891 Personal history of nicotine dependence; W01.0XXA Fall on same level from slipping, tripping and stumbling without subsequent striking against object, initial encounter; Y92.010 Kitchen of single-family (private) house as the place of occurrence of the external cause; Y99.9 Unspecified external cause status; Y93.9 Activity, unspecified
CPT/HCPCS: 36415; 51702; 71045; 80048; 80053; 80076; 81001; 83735; 84100; 84484; 85025; 85610; 85730; 93005; 97110; 97116; 97161; 97530; 97542; 99285; J0690; J1100; J1170; J1650; J2001; J2175; J2250; J2405; J2704; J3010; J3480; J7030; J7120